=== PATIENT | female | born 1990 ===

== ENCOUNTER 2022-08-11 16:28 | Emergency (ER) | payer OTHER ==
[~2022-08-11] VITALS: Ht 175.3 cm; Wt 54.4 kg
[~2022-08-11 16:28] MED LIST: MOTRIN800 MG PO
== END 2022-08-11 20:22 | disposition home or self-care (01) ==
LOC: ER 16:28
DX: O20.9 Hemorrhage in early pregnancy, unspecified (principal); Z3A.08 8 weeks gestation of pregnancy